=== PATIENT | female | born 1980 | race Caucasian/White ===

== ENCOUNTER → 2016-11-16 | Outpatient (CLI) | payer BC ==
--- NOTE | 2016-11-16 14:18 | US ---
November 16, [address] Saul, Thank you very much for allowing us to see your patient Brianna. As you know, she is a 36 year old, gr avida 1, para 0 who was asked to see us for screening. Her is complicated by AM A and vanishing twin seen in your office.. The patient presents today for her ultrasound. LMP: nr Age by Dates: 12 weeks 0 days EDC: 05/31/17 There is a single intrauterine with a crown rump length of 66 mm, with is consistent with 1 2 weeks, 5 days gestational age. The placenta is anterior. The nuchal translucency measurement is 1.5 mm, and the nasal bone was seen. heart tones were present with a rate of 167 beats per minute. There was what appeared to be a co-twin gestational sac but no pole or yolk sac IMPRESSION: 36 year old 1 para 0 at 12 weeks 0 days gestation. 1. screening. It was discussed with the patient that what we were seeing on today's ultra sound looked reassuring. The size of the fetus was appropriate and the two Down syndrome markers iden tified were within normal limits. We reviewed the options of NIPT, sequential and CVS/amniocentesis. I did not recommend NIPT given the vanishing twin and risk for false positive from this. She declined invasive tests in favor of seque ntial which was started today. We took the liberty of drawing her blood today and we will draw it again after 15 weeks. The patient will receive a risk assessment following each blood draw. We suggest that all of our patients have an 18-20 week ultrasound exam to evaluate for anomalies and second trimester Down syndrome markers. S he was scheduled for a second blood draw after 15 weeks It was discussed with the patient that the sequential screen has a 90% detection rate for Down syndro me and a 90% detection rate for trisomy 18. It also screens for spina bifida. We also reviewed the o ptions of [id number] and invasive testing which she declines today in favor of completing serum scree joselito. She would consider these options if sequential returns abnormal. Thank you again for sending this patient to see us today. Approximately 15 minutes of face to face contact were spent with this patient and her partner today w ith 15 of this time spent in direct face to face counseling regarding these issues. Sincerely, Jillian Howell M.D., Perinatologist Division of Maternal Medicine Department of Obstetrics and Gynecology
--- NOTE | 2016-11-16 15:20 | US ---
First Trimester Obstetrical Sonography with Nuchal Translucency Assessment Clinical History: 36-year-old female with advanced maternal age presenting for early screeni ng evaluation. There is a history of a "vanishing twin". LMP: August 24, 2016, indicating an age of 12 weeks 0 days, and an estimated date of delivery of 2016. Technique: A curvilinear 5 MHz transducer was used to sonographically evaluate the fetus and placenta . M-mode Doppler was used. Cine clips were stored on PACS. Dr. Jillian Howell was present. Compression study: None currently available. Findings: There is a single viable intrauterine gestation with a crown-rump length of 66 mm, co rresponding to an age of 13 weeks 0 days. The heart rate is 167 bpm. The nuchal translucency is normal measuring 1.5 mm, and the nasal bone is seen. The placenta is formi ng anteriorly. There is no focal fibroid or subchorionic hemorrhage. Impression: There is a single viable intrauterine gestation, with 2 normal early screening zelalem carver. The patient should return at 20 weeks gestation for more complete anatomic screening and repeat biome try. Please also refer to Dr. Howell's separate assessments and specific recommendations for follow up.
== END ==
LOC: FIMAGING 12:10
PROVIDERS: ATTEND Obstetrics & Gynecology
DX: O09.511 Supervision of elderly primigravida, first trimester (principal); Z3A.12 12 weeks gestation of pregnancy

== ENCOUNTER → 2017-01-03 | Outpatient (CLI) | payer BC | LOC: FIMAGING 08:14 | PROVIDERS: ATTEND Obstetrics & Gynecology | DX: O09.512 Supervision of elderly primigravida, second trimester (principal); Z3A.18 18 weeks gestation of pregnancy ==

== ENCOUNTER → 2017-04-28 | Outpatient (CLI) | payer BC | LOC: FIMAGING 12:11 | PROVIDERS: ATTEND Obstetrics & Gynecology | DX: O09.523 Supervision of elderly multigravida, third trimester (principal); O26.843 Uterine size-date discrepancy, third trimester; Z3A.35 35 weeks gestation of pregnancy ==